=== PATIENT | female | born 1995 | race Caucasian/White ===

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

== ENCOUNTER 2018-06-17 16:22 | Emergency (ER) | payer OTHER ==
[2018-06-17 16:34] VITALS: Ht 170.2 cm
[2018-06-17 18:55] VITALS: BP 135/87
== END 2018-06-17 18:56 | disposition home or self-care (01) ==
LOC: ED 16:22
DX: B34.9 Viral infection, unspecified (principal)